=== PATIENT | female | born 1945 | race Caucasian/White ===

== ENCOUNTER → 2016-11-08 | Outpatient (CLI) | payer MEDICARE, BC ==
[~2016-11-08] VITALS: Ht 172.7 cm; Wt 86.4 kg
[~2016-11-08] MED LIST: ALDACTONE 25MG25 M1 PO; ALEVE 220MG220 MG PO; CEPHALEXIN500 M1 PO; DIME240E PO; DUO-KAPS1 CAP PO; FISH OIL 1000MG1 CAP PO; LABETALOL100 MG PO; MULTI VITAMINS1 TAB PO; NEURONTIN300 MG/CAP PO; TRANDATE 100MG100 MG PO; TYLENOL 500MG500 MG PO; VIIBRYD20 MG PO; [UNRECOGNIZED DRUG - OTHER]
[2016-11-08 13:52] VITALS: BP 150/88; PULSE 76
[2016-11-08 14:43] VITALS: BP 142/76; PULSE 71
== END ==
LOC: COL.RAD 13:15
DX: M54.2 Cervicalgia (principal); M47.22 Other spondylosis with radiculopathy, cervical region; M48.02 Spinal stenosis, cervical region
CPT/HCPCS: J1100

== ENCOUNTER → 2016-11-23 | Outpatient (CLI) | payer MEDICARE, BC | LOC: COL.RAD 12:30 | DX: M47.812 Spondylosis without myelopathy or radiculopathy, cervical region (principal); G93.9 Disorder of brain, unspecified; M79.604 Pain in right leg; M62.81 Muscle weakness (generalized) | CPT/HCPCS: A9585 ==

== ENCOUNTER → 2016-11-26 | Outpatient (CLI) | payer MEDICARE, BC | LOC: MC.RAD 11:35 | DX: Z12.31 Encounter for screening mammogram for malignant neoplasm of breast (principal) ==

== ENCOUNTER → 2016-11-30 | Outpatient (CLI) | payer MEDICARE, BC | LOC: COL.RAD 09:45 | DX: M48.06 Spinal stenosis, lumbar region (principal); M51.36 Other intervertebral disc degeneration, lumbar region | CPT/HCPCS: A9585 ==

== ENCOUNTER 2016-12-31 15:30 | Outpatient (RCR) | payer MEDICARE, BC ==
[2016-12-29 09:40] VITALS: BP 124/65; PULSE 67; TEMP 98.4
[2016-12-30 08:04] VITALS: BP 118/52; PULSE 72; TEMP 97.6
[~2016-12-31] VITALS: Ht 167.6 cm; Wt 89.0 kg
[2016-12-31 15:45] VITALS: BP 128/60; PULSE 64; TEMP 97.8
== END 2016-12-31 18:57 | disposition home or self-care (01) ==
LOC: EUO 15:30
DX: G35 Multiple sclerosis (principal)
CPT/HCPCS: J2930; J7050

== ENCOUNTER 2017-04-26 10:45 | Outpatient (RCR) | payer MEDICARE, BC | END 2017-04-28 | LOC: MKS.ESL.PT | DX: G35 Multiple sclerosis (principal); R53.1 Weakness | CPT/HCPCS: G8978-GP; G8979-GP ==

== ENCOUNTER 2017-05-03 11:39 | Outpatient (RCR) | payer MEDICARE, BC ==
[2017-05-18] MEDS ORDERED: CYMBALTA 60MG60 MG PO (22:39)
[2017-05-19] MEDS ORDERED: COPAXONE 20M20 MG/M1 SQ (02:05)
[2017-05-21] MEDS ORDERED: LOVAZA1 GM PO (10:27)
[2017-05-21] MEDS ORDERED: LIPITOR 40MG TA40 MG PO (10:27)
[2017-05-21] MEDS ORDERED: ASPIRIN E.C. 8181 MG PO (10:28)
[2017-05-21] MEDS ORDERED: NORVASC 5MG5 MG/TAB PO (10:28)
== END 2017-05-09 11:40 ==
LOC: MKS.ESL.PT 11:39
DX: G35 Multiple sclerosis (principal); M62.81 Muscle weakness (generalized)
CPT/HCPCS: G8979-GP; G8980-GP

== ENCOUNTER → 2017-05-31 | Outpatient (CLI) | payer MEDICARE, BC ==
[~2017-05-31] MED LIST changes: +ASPIRIN E.C. 8181 MG PO; +COPAXONE 20M20 MG/M1 SQ; +CYMBALTA 60MG60 MG PO; +LIPITOR 40MG TA40 MG PO; +LOVAZA1 GM PO; +NORVASC 5MG5 MG/TAB PO
== END ==
LOC: COL.PUL 11:21
DX: Z01.89 Encounter for other specified special examinations (principal)

== ENCOUNTER → 2017-06-03 | Outpatient (CLI) | payer MEDICARE, BC | LOC: COL.PUL 11:21 | DX: J00 Acute nasopharyngitis [common cold] (principal); R07.9 Chest pain, unspecified ==

== ENCOUNTER → 2017-07-30 | Outpatient (CLI) | payer MEDICARE, BC | LOC: COL.RAD 11:33 | DX: R06.02 Shortness of breath (principal) | CPT/HCPCS: A9539; A9540 ==

== ENCOUNTER → 2017-08-22 | Outpatient (CLI) | payer MEDICARE, BC | LOC: COL.PUL 08-19 08:00 | DX: I27.20 Pulmonary hypertension, unspecified (principal) | CPT/HCPCS: J7674 ==

== ENCOUNTER 2017-11-30 20:19 | Emergency (ER) | payer MEDICARE, BC ==
[~2017-11-30] VITALS: Ht 167.6 cm; Wt 83.6 kg
[2017-11-30 20:25] VITALS: BP 138/75; TEMP 97
[2017-11-30] MEDS ORDERED: PROTONIX40 MG/Pack (20:45)
[2017-11-30] MEDS ORDERED: PHARMASSURE CHE30 MG (20:45)
[2017-11-30 23:13] VITALS: PULSE 84
== END 2017-11-30 23:13 | disposition home or self-care (01) ==
LOC: COL.ER 20:19
DX: K94.23 Gastrostomy malfunction (principal); G35 Multiple sclerosis; I10 Essential (primary) hypertension; Z90.710 Acquired absence of both cervix and uterus; Z79.82 Long term (current) use of aspirin

== ENCOUNTER 2017-12-06 05:39 | Emergency (ER) | payer MEDICARE, BC ==
[~2017-12-06] VITALS: Ht 167.6 cm; Wt 83.2 kg
[~2017-12-06 05:39] MED LIST changes: +PHARMASSURE CHE30 MG; +PROTONIX40 MG/Pack
[2017-12-06 05:44] VITALS: TEMP 97.1
[2017-12-06] MEDS ORDERED: PHARMASSURE ZIN50 MG PO (06:20)
[2017-12-06 06:53] LABS: BASO % 0.4 % (0.0-2.0); EOS # 0.6 (0.0-0.7); EOS % 6.2 % (0-4.0); GRAN % 71.4 % (42.2-75.2); LYMPH # 1.2 (1.2-3.4); LYMPH % 12.4 % (20.0-51.0); MEAN CELL VOLUME 87 fl (80.0-100.0); MEAN CORPUSCULAR HGB CONC 32 g/dl (33.0-37.0); MONO # 0.9 (0.1-0.6); MONO % 9.2 % (1.7-9.3); PLATELET COUNT 314 K/mm3 (130-400); RED BLOOD COUNT 3.58 M/mm3 (4.10-5.30); REDCELL DISTRIBUTION WIDTH-CV 13.9 % (11.5-14.5)
[2017-12-06 06:55] LABS: HEMOGLOBIN 9.9 g/dl (12.5-16.0); MEAN CORPUSCULAR HEMOGLOBIN 28 pg (27.0-31.0)
[2017-12-06 07:09] LABS: ALBUMIN 3.8 gm/dL (3.5-5.0); BILIRUBIN,TOTAL 0.5 mg/dL (0.0-1.0); C-REACTIVE PROTEIN 1.4 mg/dL (0.0-0.9); CALCIUM 10.1 mg/dL (8.4-10.2); CREATININE, serum 0.85 mg/dL (0.52-1.25); POTASSIUM 4.4 mmol/L (3.4-5.0); TOTAL PROTEIN 7.7 gm/dL (6.4-8.2)
[2017-12-06 07:24] LABS: ERYTHROCYTE SEDIMENTATION RATE 106 mm/hr (0-30)
[2017-12-06] MEDS ORDERED: CEPHALEXIN500 M1 PO (08:54)
[2017-12-06 09:48] VITALS: BP 110/65; PULSE 89
== END 2017-12-06 09:48 | disposition home or self-care (01) ==
LOC: COL.ER 05:39
PROVIDERS: Emergency Medicine
DX: T81.30XA Disruption of wound, unspecified, initial encounter (principal); Z93.1 Gastrostomy status; Z93.2 Ileostomy status; Z79.82 Long term (current) use of aspirin
CPT/HCPCS: Q9967

== ENCOUNTER → 2018-05-16 | Outpatient (CLI) | payer MEDICARE, BC ==
[~2018-05-16] MED LIST changes: +CARAFATE 1GM1 G PO; +COPAXONE40 MG/ML SQ; +NATURAL IRON65 MG; +PHARMASSURE ZIN50 MG PO; +ZEGERID 40 MG-11 CAP PO
== END ==
LOC: COL.CARD 08:30
DX: R55 Syncope and collapse (principal)

== ENCOUNTER 2018-05-21 16:43 | Inpatient (IN) | payer MEDICARE, BC ==
[~2018-05-21] VITALS: Ht 167.6 cm; Wt 85.0 kg
[~2018-05-21 16:43] MED LIST changes: -CARAFATE 1GM1 G PO; -COPAXONE40 MG/ML SQ; -NATURAL IRON65 MG; -ZEGERID 40 MG-11 CAP PO
[2018-05-21 17:17] LABS: BASO % 0.3 % (0.0-2.0); EOS # 0.1 (0.0-0.7); EOS % 1.6 % (0-4.0); GRAN % 87.8 % (42.2-75.2); HEMATOCRIT 32.6 % (37.0-47.0); HEMOGLOBIN 9.9 g/dl (12.5-16.0); LYMPH # 0.6 (1.2-3.4); LYMPH % 9.3 % (20.0-51.0); MEAN CELL VOLUME 82 fl (80.0-100.0); MEAN CORPUSCULAR HEMOGLOBIN 25 pg (27.0-31.0); MEAN CORPUSCULAR HGB CONC 30 g/dl (33.0-37.0); MEAN PLATELET VOLUME 9.8 fl (7.4-10.4); MONO % 0.4 % (1.7-9.3); PLATELET COUNT 337 K/mm3 (130-400); RED BLOOD COUNT 3.96 M/mm3 (4.10-5.30); REDCELL DISTRIBUTION WIDTH-CV 14.9 % (11.5-14.5)
[2018-05-21 17:30] LABS: BILIRUBIN,TOTAL 0.4 mg/dL (0.0-1.0); CALCIUM 9.7 mg/dL (8.4-10.2); CREATININE, serum 1.1 mg/dL (0.52-1.25); POTASSIUM 4.8 mmol/L (3.4-5.0); TOTAL PROTEIN 7.4 gm/dL (6.4-8.2)
[2018-05-21] MEDS ORDERED: NATURAL IRON65 MG (17:47)
[2018-05-21] MEDS ORDERED: CARAFATE 1GM1 G PO (17:48)
[2018-05-21] MEDS ORDERED: ZEGERID 40 MG-11 CAP PO (17:49)
[2018-05-21 20:48] VITALS: BP 118/45; PULSE 85; TEMP 98.6
[2018-05-21] MEDS ORDERED: COPAXONE40 MG/ML SQ (21:43)
[2018-05-22 00:25] VITALS: BP 97/46; PULSE 73; TEMP 98.4
[2018-05-22 05:01] VITALS: BP 93/37; PULSE 67; TEMP 97.5
[2018-05-22 06:59] LABS: BASO % 0.2 % (0.0-2.0); EOS # 0.2 (0.0-0.7); EOS % 1.4 % (0-4.0); GRAN # 11.2 (1.4-6.5); GRAN % 80.8 % (42.2-75.2); LYMPH # 1.6 (1.2-3.4); LYMPH % 11.7 % (20.0-51.0); MEAN CELL VOLUME 83 fl (80.0-100.0); MEAN CORPUSCULAR HGB CONC 30 g/dl (33.0-37.0); MONO # 0.8 (0.1-0.6); MONO % 5.5 % (1.7-9.3); PLATELET COUNT 275 K/mm3 (130-400); RED BLOOD COUNT 3.11 M/mm3 (4.10-5.30); REDCELL DISTRIBUTION WIDTH-CV 15.5 % (11.5-14.5)
[2018-05-22 07:05] LABS: HEMATOCRIT 25.9 % (37.0-47.0); MEAN CORPUSCULAR HEMOGLOBIN 25 pg (27.0-31.0)
[2018-05-22 07:07] LABS: HEMOGLOBIN 7.8 g/dl (12.5-16.0)
[2018-05-22 07:14] LABS: CALCIUM 8.9 mg/dL (8.4-10.2); CREATININE, serum 0.96 mg/dL (0.52-1.25); POTASSIUM 4.2 mmol/L (3.4-5.0)
[2018-05-22 07:22] VITALS: BP 110/48; PULSE 67; TEMP 98.3
[2018-05-22 12:16] VITALS: BP 126/52; PULSE 63; TEMP 97.5
[2018-05-22 15:38] VITALS: BP 129/56; PULSE 65; TEMP 98.3
[2018-05-22 19:15] VITALS: BP 142/58; PULSE 67; TEMP 97.8
[2018-05-23 00:02] VITALS: BP 132/62; PULSE 78
[2018-05-23 04:06] VITALS: BP 139/69; PULSE 78; TEMP 98.1
[2018-05-23 06:25] LABS: BASO % 0.5 % (0.0-2.0); EOS # 0.3 (0.0-0.7); EOS % 4.4 % (0-4.0); GRAN # 4.3 (1.4-6.5); GRAN % 66.7 % (42.2-75.2); LYMPH # 1.2 (1.2-3.4); LYMPH % 19.2 % (20.0-51.0); MEAN CELL VOLUME 82 fl (80.0-100.0); MEAN CORPUSCULAR HGB CONC 31 g/dl (33.0-37.0); MEAN PLATELET VOLUME 10.1 fl (7.4-10.4); MONO # 0.6 (0.1-0.6); MONO % 8.7 % (1.7-9.3); PLATELET COUNT 246 K/mm3 (130-400); RED BLOOD COUNT 3.12 M/mm3 (4.10-5.30); REDCELL DISTRIBUTION WIDTH-CV 15.1 % (11.5-14.5)
[2018-05-23 06:29] LABS: HEMATOCRIT 25.5 % (37.0-47.0); HEMOGLOBIN 7.8 g/dl (12.5-16.0); MEAN CORPUSCULAR HEMOGLOBIN 25 pg (27.0-31.0)
[2018-05-23 06:40] LABS: CALCIUM 9.3 mg/dL (8.4-10.2); CREATININE, serum 0.87 mg/dL (0.52-1.25); POTASSIUM 4.1 mmol/L (3.4-5.0)
[2018-05-23 08:38] VITALS: BP 144/71; PULSE 75; TEMP 98.2
[2018-05-23 11:43] VITALS: BP 151/68; PULSE 64; TEMP 98.1
[2018-05-23 13:57] LABS: PH 6 (5-8); SQUAMOUS EPITHELIAL None Seen /hpf; URINE APPEARANCE Clear; URINE BACTERIA Rare /hpf; URINE BILIRUBIN Negative (NEGATIVE); URINE BLOOD Negative (NEGATIVE); URINE COLOR Straw; URINE GLUCOSE Negative (NEGATIVE); URINE KETONE Negative (NEGATIVE); URINE LEUKOCYTE ESTERASE Negative (NEGATIVE); URINE NITRATE Negative (NEGATIVE); URINE PROTEIN(semi-quant) Negative (NEGATIVE); URINE RBC 0-2 /hpf; URINE UROBILINOGEN Negative (NEGATIVE)
[2018-05-23 14:13] LABS: COLLECTION METHOD CLEAN CATCH
[2018-05-23 17:00] VITALS: BP 138/76; PULSE 88; TEMP 97.9
[2018-05-23 18:41] VITALS: BP 129/60; PULSE 79; TEMP 98.9
[2018-05-24 00:31] VITALS: BP 137/67; PULSE 74
[2018-05-24 04:48] VITALS: BP 135/66; PULSE 68
[2018-05-24 08:00] VITALS: BP 140/69; PULSE 70; TEMP 98.4
[2018-05-24 08:12] LABS: BASO % 0.1 % (0.0-2.0); EOS # 0.3 (0.0-0.7); EOS % 3.9 % (0-4.0); GRAN # 4.9 (1.4-6.5); GRAN % 70.2 % (42.2-75.2); LYMPH # 1.3 (1.2-3.4); LYMPH % 18.4 % (20.0-51.0); MEAN CELL VOLUME 81 fl (80.0-100.0); MEAN CORPUSCULAR HGB CONC 31 g/dl (33.0-37.0); MEAN PLATELET VOLUME 10.1 fl (7.4-10.4); MONO # 0.5 (0.1-0.6); PLATELET COUNT 306 K/mm3 (130-400); RED BLOOD COUNT 3.36 M/mm3 (4.10-5.30); REDCELL DISTRIBUTION WIDTH-CV 15.1 % (11.5-14.5)
[2018-05-24 08:13] LABS: HEMATOCRIT 27.1 % (37.0-47.0); HEMOGLOBIN 8.4 g/dl (12.5-16.0); MEAN CORPUSCULAR HEMOGLOBIN 25 pg (27.0-31.0)
[2018-05-24 08:31] LABS: CALCIUM 9.4 mg/dL (8.4-10.2); CREATININE, serum 0.9 mg/dL (0.52-1.25); POTASSIUM 3.9 mmol/L (3.4-5.0)
[2018-05-24] MEDS ORDERED: CEFTIN500 MG PO (10:39)
[2018-05-24 11:47] VITALS: BP 131/64; PULSE 63; TEMP 97.6
== END 2018-05-24 13:30 | disposition home or self-care (01) | DRG 871 ==
LOC: COL.ER 16:43 → MEDICAL 18:30
PROVIDERS: Family Medicine; Nurse Practitioner; Physician Assistant
DX: A41.51 Sepsis due to Escherichia coli [E. coli] (principal); J15.5 Pneumonia due to Escherichia coli; G35 Multiple sclerosis; Z85.41 Personal history of malignant neoplasm of cervix uteri; I10 Essential (primary) hypertension
CPT/HCPCS: OP; 99222-AI; 99232-AI; 99239; A4216; A9284; J0456; J0696; J1650; J2405; J7030; J7050

== ENCOUNTER → 2018-06-30 | Outpatient (CLI) | payer MEDICARE, BC ==
[~2018-06-30] MED LIST changes: +CARAFATE 1GM1 G PO; +CEFTIN500 MG PO; +COPAXONE40 MG/ML SQ; +NATURAL IRON65 MG; +ZEGERID 40 MG-11 CAP PO
== END ==
LOC: MC.RAD 10:30
DX: Z12.31 Encounter for screening mammogram for malignant neoplasm of breast (principal)

== ENCOUNTER 2018-07-30 12:55 | Outpatient (CLI) | payer MEDICARE, BC ==
[~2018-07-30] VITALS: Ht 167.6 cm; Wt 86.0 kg
[2018-07-30 13:40] VITALS: BP 118/47; PULSE 79; TEMP 97.4
== END 2018-07-30 14:41 | disposition home or self-care (01) ==
LOC: EUO 12:55
DX: M85.80 Other specified disorders of bone density and structure, unspecified site (principal); Z79.899 Other long term (current) drug therapy
CPT/HCPCS: J3489

== ENCOUNTER 2019-08-17 10:50 | Outpatient (CLI) | payer MEDICARE, BC ==
[~2019-08-17] VITALS: Ht 167.6 cm; Wt 85.4 kg
[2019-08-17 11:41] VITALS: BP 115/62; PULSE 63; TEMP 98.2
[2019-08-17] MEDS ORDERED: MASON NATURAL2000 IU PO (11:43)
[2019-08-17] MEDS ORDERED: PROVIGIL200 MG PO (11:43)
[2019-08-19] MEDS ORDERED: ZEGERID 20 MG-11 CAP PO (22:31)
== END 2019-08-17 12:04 | disposition home or self-care (01) ==
LOC: EUO 10:50
DX: M81.0 Age-related osteoporosis without current pathological fracture (principal)
CPT/HCPCS: J3489

== ENCOUNTER → 2019-08-18 | Outpatient (CLI) | payer MEDICARE, BC ==
[~2019-08-18] MED LIST changes: +MASON NATURAL2000 IU PO; +PROVIGIL200 MG PO; +ZEGERID 20 MG-11 CAP PO
== END ==
LOC: COL.RAD 08:59
DX: G35 Multiple sclerosis (principal); E55.9 Vitamin D deficiency, unspecified
CPT/HCPCS: A9585

== ENCOUNTER → 2019-08-18 | Outpatient (CLI) | payer MEDICARE, BC | LOC: MC.RAD 10:21 | DX: Z12.31 Encounter for screening mammogram for malignant neoplasm of breast (principal) ==

== ENCOUNTER → 2020-07-04 | Outpatient (CLI) | payer MEDICARE, BC | LOC: COL.RAD 15:30 | DX: R10.9 Unspecified abdominal pain (principal); Z98.890 Other specified postprocedural states; Z90.49 Acquired absence of other specified parts of digestive tract; Z87.19 Personal history of other diseases of the digestive system | CPT/HCPCS: Q9967 ==

== ENCOUNTER → 2020-08-22 | Outpatient (CLI) | payer MEDICARE, BC | LOC: MC.RAD 13:25 | DX: Z12.31 Encounter for screening mammogram for malignant neoplasm of breast (principal) ==

== ENCOUNTER 2020-10-25 14:14 | Outpatient (CLI) | payer MEDICARE, BC ==
[~2020-10-25] VITALS: Ht 167.6 cm; Wt 89.8 kg
[2020-10-25 14:49] VITALS: BP 117/65; PULSE 69; TEMP 97.8
[2020-11-11] MEDS ORDERED: SOLU-MEDRO1000 MG/1 IV (12:16)
== END 2020-10-25 17:27 | disposition home or self-care (01) ==
LOC: EUO 14:14
DX: M81.0 Age-related osteoporosis without current pathological fracture (principal)
CPT/HCPCS: J0897

== ENCOUNTER 2020-11-15 08:00 | Outpatient (RCR) | payer MEDICARE, BC ==
[2020-11-11 08:56] VITALS: BP 107/68; PULSE 59; TEMP 97.9
--- NOTE | 2020-11-11 09:08 | NUR ---
Per report of Dr Caballero,pt in [facility].Cardioversion cancelled.
[2020-11-12 08:45] VITALS: BP 127/67; PULSE 62; TEMP 98
[2020-11-13 09:39] VITALS: BP 160/72; PULSE 61; TEMP 98.1
[2020-11-14 08:42] VITALS: BP 158/72; PULSE 61; TEMP 98.2
[~2020-11-15] VITALS: Ht 167.6 cm; Wt 69.4 kg
[~2020-11-15 08:00] MED LIST changes: +SOLU-MEDRO1000 MG/1 IV
[2020-11-15 08:24] VITALS: BP 140/62; PULSE 59; TEMP 98.1
== END 2020-11-15 10:30 | disposition still patient (30) ==
LOC: EUO 08:00
DX: G35 Multiple sclerosis (principal); Z79.899 Other long term (current) drug therapy
CPT/HCPCS: J2930; J7050

== ENCOUNTER → 2020-12-22 | Outpatient (CLI) | payer MEDICARE, BC ==
[~2020-12-22] MED LIST changes: +D3-5050000 IU PO; +NATURAL IRON65 MG PO
== END ==
LOC: COL.RAD 10:45
DX: M25.551 Pain in right hip (principal); G35 Multiple sclerosis; E55.9 Vitamin D deficiency, unspecified; R53.83 Other fatigue

== ENCOUNTER 2021-05-11 13:53 | Outpatient (CLI) | payer MEDICARE, BC ==
[~2021-05-11 13:53] MED LIST changes: -D3-5050000 IU PO; -NATURAL IRON65 MG PO
[2021-05-11 14:17] VITALS: BP 123/76; PULSE 72; TEMP 97.6
== END 2021-05-11 14:19 | disposition home or self-care (01) ==
LOC: EUO 13:53
DX: M81.0 Age-related osteoporosis without current pathological fracture (principal)
CPT/HCPCS: J0897

== ENCOUNTER 2021-05-26 14:06 | Day surgery (SDC) | payer MEDICARE, BC ==
[~2021-05-26] VITALS: Ht 167.6 cm; Wt 84.4 kg
[2021-05-26 15:01] VITALS: BP 149/73; PULSE 62; TEMP 97.8
[2021-05-26] MEDS ORDERED: CARAFATE 1GM1 G PO (15:18)
[2021-05-26] MEDS ORDERED: ZEGERID 20 MG-11 CAP PO (15:19)
[2021-05-26] MEDS ORDERED: D3-5050000 IU PO ×2 (15:20→15:21)
[2021-05-26] MEDS ORDERED: NATURAL IRON65 MG PO (15:22)
[2021-05-26 15:55] VITALS: BP 137/66; PULSE 70
--- NOTE | 2021-05-26 15:55 | NUR ---
Pt to [facility] via cart from ENDO. Pt drowsy, but awake. Pt denies pain or nause. Crackers and water given per pt request. Will continue to monitor. Call light within reach.
[2021-05-26 16:25] VITALS: BP 148/71; PULSE 63
--- NOTE | 2021-05-26 16:25 | NUR ---
into speak with pt and .
--- NOTE | 2021-05-26 16:40 | NUR ---
Discharge instructions reviewed. Pt voices understanding. IV site discontinued with all parts intact. Pt up to dress. Call light within reach.
--- NOTE | 2021-05-26 16:56 | NUR ---
Pt escorted to private car via wheel chair. Pt accompanied home by her .
== END 2021-05-26 16:55 | disposition home or self-care (01) ==
LOC: SDCO 14:06
DX: K29.30 Chronic superficial gastritis without bleeding (principal); K21.00 Gastro-esophageal reflux disease with esophagitis, without bleeding; K62.0 Anal polyp; K22.5 Diverticulum of esophagus, acquired; R19.5 Other fecal abnormalities; D50.9 Iron deficiency anemia, unspecified; K64.1 Second degree hemorrhoids; K57.30 Diverticulosis of large intestine without perforation or abscess without bleeding; G35 Multiple sclerosis; I10 Essential (primary) hypertension; F32.A Depression, unspecified; Z85.41 Personal history of malignant neoplasm of cervix uteri; Z90.710 Acquired absence of both cervix and uterus; Z86.010 Personal history of colon polyps; Z79.82 Long term (current) use of aspirin; Z79.899 Other long term (current) drug therapy; Z83.3 Family history of diabetes mellitus; Z82.3 Family history of stroke
CPT/HCPCS: J7030

== ENCOUNTER 2021-06-11 09:58 | Emergency (ER) | payer MEDICARE, BC ==
[~2021-06-11] VITALS: Ht 167.6 cm; Wt 86.4 kg
[~2021-06-11 09:58] MED LIST changes: +D3-5050000 IU PO; +NATURAL IRON65 MG PO
[2021-06-11 10:07] VITALS: TEMP 98.3
[2021-06-11 10:37] LABS: BASO % 0.7 % (0.0-2.0); EOS # 0.3 K/mm3 (0.0-0.7); EOS % 5.6 % (0-4.0); GRAN # 3.4 K/mm3 (1.4-6.5); GRAN % 62.4 % (42.2-75.2); HEMOGLOBIN 11.7 g/dl (12.5-16.0); LYMPH # 1.2 K/mm3 (1.2-3.4); LYMPH % 21.4 % (20.0-51.0); MEAN CELL VOLUME 85 fl (80.0-100.0); MEAN CORPUSCULAR HEMOGLOBIN 28 pg (27.0-31.0); MEAN CORPUSCULAR HGB CONC 33 g/dl (33.0-37.0); MEAN PLATELET VOLUME 10.8 fl (7.4-10.4); MONO # 0.5 K/mm3 (0.1-0.6); MONO % 9.5 % (1.7-9.3); PLATELET COUNT 214 K/mm3 (130-400); RED BLOOD COUNT 4.12 M/mm3 (4.10-5.30); REDCELL DISTRIBUTION WIDTH-CV 15.7 % (11.5-14.5)
[2021-06-11 10:38] LABS: HEMATOCRIT 35.2 % (37.0-47.0)
[2021-06-11 10:51] LABS: ALANINE AMINOTRANSFERASE 13 U/L (0-55); ALBUMIN 4.3 gm/dL (3.4-4.8); ALKALINE PHOSPHATASE 98 U/L (40-150); ANION GAP 11 mmol/L (7-16); AST,SGOT 17 U/L (5-34); BILIRUBIN,TOTAL 0.5 mg/dL (0.2-1.2); BLOOD UREA NITROGEN 15 mg/dL (10-20); CALCIUM 10.1 mg/dL (8.4-10.2); CARBON DIOXIDE 23 mmol/L (23-31); CHLORIDE 109 mmol/L (98-107); CREATININE, serum 1.02 mg/dL (0.57-1.11); GLUCOSE 76 mg/dL (70-99); POTASSIUM 4.3 mmol/L (3.5-4.5); SODIUM 143 mmol/L (136-145)
[2021-06-11 10:57] LABS: TROPONIN-I < 0.010 ng/mL (0.00-0.033)
[2021-06-11 12:05] VITALS: BP 165/82; PULSE 72
== END 2021-06-11 12:06 | disposition home or self-care (01) ==
LOC: COL.ER 09:58
PROVIDERS: Physician Assistant
DX: G35 Multiple sclerosis (principal); D64.9 Anemia, unspecified; E16.2 Hypoglycemia, unspecified; K21.9 Gastro-esophageal reflux disease without esophagitis; I27.20 Pulmonary hypertension, unspecified; Z79.899 Other long term (current) drug therapy

== ENCOUNTER 2021-11-21 14:03 | Outpatient (CLI) | payer MEDICARE, BC ==
[~2021-11-21] VITALS: Ht 167.6 cm; Wt 88.5 kg
[2021-11-21 14:21] VITALS: BP 152/66; PULSE 65; TEMP 98.3
== END 2021-11-21 16:46 | disposition home or self-care (01) ==
LOC: EUO 14:03
DX: M81.0 Age-related osteoporosis without current pathological fracture (principal)
CPT/HCPCS: J0897

== ENCOUNTER 2022-05-25 09:56 | Outpatient (CLI) | payer MEDICARE, BC ==
[~2022-05-25] VITALS: Ht 167.6 cm; Wt 85.2 kg
[2022-05-25 10:19] VITALS: BP 129/75; PULSE 63; TEMP 98
== END 2022-05-25 10:27 ==
LOC: EUO 09:56
DX: M81.0 Age-related osteoporosis without current pathological fracture (principal)
CPT/HCPCS: J0897

== ENCOUNTER 2023-07-12 08:40 | Outpatient (CLI) | payer MEDICARE ==
[~2023-07-12] VITALS: Ht 167.6 cm; Wt 86.5 kg
[~2023-07-12 08:40] MED LIST changes: +CALCIUM ASCORB500 MG PO; +ERGOCALCIFER50000 IU PO; +PROLIA60 MG/ML SQ
[2023-07-12 08:49] VITALS: BP 152/83; PULSE 72; TEMP 97.7
--- NOTE | 2023-07-12 09:16 | NUR ---
pt tolerated prolia injection well. pt ambulated independently to [facility] following procedure. pt free from acute concerns and complaints and vs remained within normal limits upon discharge.
== END 2023-07-12 09:17 | disposition home or self-care (01) ==
LOC: EUO 08:40
DX: M81.0 Age-related osteoporosis without current pathological fracture (principal)
CPT/HCPCS: J0897

== ENCOUNTER 2024-01-16 12:57 | Outpatient (CLI) | payer MEDICARE ==
[~2024-01-16] VITALS: Ht 167.6 cm; Wt 85.5 kg
[2024-01-16 13:11] VITALS: BP 119/69; PULSE 58; TEMP 98.3
[2024-01-16] MEDS ORDERED: VIIBRYD20 MG PO (13:14)
[2024-01-16] MEDS ORDERED: Denosumab 60 MG/ML SYRINGE SQ ONE (13:15)
--- NOTE | 2024-01-16 14:30 | NUR ---
Pt tolerated prolia without issue. She exits dept with steady gait, free of complaints at departure.
== END 2024-01-16 13:30 | disposition home or self-care (01) ==
LOC: EUO 12:57
DX: M81.0 Age-related osteoporosis without current pathological fracture (principal)
CPT/HCPCS: J0897